=== PATIENT | female | born 1975 | race Caucasian/White ===

== ENCOUNTER → 2017-11-02 | Outpatient (CLI) | payer OTHER, BC ==
[~2017-11-02] MED LIST: ALBU90OI INH; FLUO10 PO; Flonase 0.05% N16 GM; PRED20 PO; Protonix40 MG PO
[2017-11-02 08:30] LABS: BASOPHILS PERCENT AUTO 1 % (0-2); EOSINOPHILS PERCENT AUTO 3 % (0-6); Hematocrit 41.9 % (33.0-51.0); Hemoglobin 13.5 g/dL (11.5-16.0); IMMATURE GRAN ABSOLUTE AUTO 0.09 K/mm3 (0.00-0.10); IMMATURE GRAN PERCENT AUTO 1 % (0-1); LYMPHOCYTES ABSOLUTE AUTO 2.99 K/mm3 (0.84-5.20); LYMPHOCYTES PERCENT AUTO 20 % (21-46); MONOCYTES ABSOLUTE AUTO 0.55 K/mm3 (0.16-1.47); MONOCYTES PERCENT AUTO 4 % (4-13); Mean Corpuscular HGB 26.8 pg (26.0-34.0); Mean Corpuscular HGB Conc 32.2 g/dL (31.5-36.5); Mean Corpuscular Volume 83 fL (80-100); Mean Platelet Volume 9.1 fL (9.1-12.4); NEUTROPHILS ABSOLUTE AUTO 10.86 K/mm3 (1.96-9.15); NEUTROPHILS PERCENT AUTO 72 % (41-73); Platelet Count 480 K/mm3 (150-400); RDW Coefficient Variation 14.1 % (11.7-14.2); RDW Standard Deviation 42.3 fL (35.1-46.3); Red Blood Cell Count 5.03 M/mm3 (3.80-5.20); White Blood Cell Count 14.99 K/mm3 (4.00-11.30)
[2017-11-02 08:42] LABS: Anion Gap 7 mmol/L (6-16); Blood Urea Nitrogen 8 mg/dL (8-24); Bun/Creatinine Ratio 13.3 (12.0-20.0); CO2, Blood 29 mmol/L (21-32); Calcium, Blood 9.5 mg/dL (8.5-10.1); Chloride, Blood 102 mmol/L (98-108); Glomerular Filtration Rate >60 (60-); Glucose, Blood 86 mg/dL (70-99); Potassium, Blood 4.2 mmol/L (3.5-5.5); Sodium, Blood 138 mmol/L (136-145)
== END | disposition home or self-care (01) ==
LOC: LAB EV 08:24 → LAB SHORT 08:24
PROVIDERS: Physician Assistant Surgical
DX: M62.81 Muscle weakness (generalized) (principal)
CPT/HCPCS: 80048; 85025

== ENCOUNTER → 2017-11-07 | Outpatient (CLI) | payer OTHER, BC ==
[2017-11-08 09:53] LABS: Candida species (DNA Probe) Negative (NEGATIVE); G. vaginalis (DNA Probe) Positive (NEGATIVE); T. vaginalis (DNA Probe) Negative (NEGATIVE)
[2017-11-09 11:16] LABS: HPV Genotype 16 Not Detected (NOTDET); HPV Genotype 18 Not Detected (NOTDET); HPV High Risk Other Not Detected (NOTDET)
== END ==
LOC: LAB SHORT 16:25 → LAB 16:25
PROVIDERS: Obstetrics & Gynecology
DX: Z01.419 Encounter for gynecological examination (general) (routine) without abnormal findings (principal); N76.0 Acute vaginitis
CPT/HCPCS: 87480; 87510; 87660

== ENCOUNTER 2017-11-10 10:20 | Emergency (ER) | payer OTHER, BC | END 2017-11-10 11:00 | disposition left against medical advice (07) | LOC: ER 10:20 | DX: Z53.21 Procedure and treatment not carried out due to patient leaving prior to being seen by health care provider (principal) ==

== ENCOUNTER 2018-07-25 19:22 | Emergency (ER) | payer OTHER ==
[~2018-07-25] VITALS: Ht 157.5 cm; Wt 97.5 kg
[~2018-07-25 19:22] MED LIST changes: +Ativan1 MG PO; +MECL12.5 PO
[2018-07-25] MEDS ORDERED: PROBIOTIC1 EAC1 PO (20:19)
[2018-07-25 20:21] LABS: BASOPHILS ABSOLUTE AUTO 0.11 K/mm3 (0.00-0.23); BASOPHILS PERCENT AUTO 1 % (0-2); EOSINOPHILS ABSOLUTE AUTO 0.42 K/mm3 (0.00-0.68); EOSINOPHILS PERCENT AUTO 3 % (0-6); Hematocrit 40.1 % (33.0-51.0); Hemoglobin 12.4 g/dL (11.5-16.0); IMMATURE GRAN ABSOLUTE AUTO 0.11 K/mm3 (0.00-0.10); IMMATURE GRAN PERCENT AUTO 1 % (0-1); LYMPHOCYTES ABSOLUTE AUTO 3.84 K/mm3 (0.84-5.20); LYMPHOCYTES PERCENT AUTO 23 % (21-46); MONOCYTES ABSOLUTE AUTO 0.68 K/mm3 (0.16-1.47); MONOCYTES PERCENT AUTO 4 % (4-13); Mean Corpuscular HGB 25.2 pg (26.0-34.0); Mean Corpuscular HGB Conc 30.9 g/dL (31.5-36.5); Mean Corpuscular Volume 82 fL (80-100); Mean Platelet Volume 9.2 fL (9.1-12.4); NEUTROPHILS ABSOLUTE AUTO 11.59 K/mm3 (1.96-9.15); NEUTROPHILS PERCENT AUTO 69 % (41-73); Platelet Count 505 K/mm3 (150-400); RDW Coefficient Variation 15.7 % (11.7-14.2); RDW Standard Deviation 45.8 fL (35.1-46.3); Red Blood Cell Count 4.92 M/mm3 (3.80-5.20); White Blood Cell Count 16.75 K/mm3 (4.00-11.30)
[2018-07-25 20:49] LABS: Alanine Aminotransfer (ALT/SGP 28 U/L (12-78); Albumin, Blood 3.5 g/dL (3.4-5.0); Albumin/Globulin Ratio 0.8 (0.8-1.8); Alk Phos 80 U/L (50-136); Anion Gap 8 mmol/L (6-16); Aspartate Aminotrans (AST/SGOT 14 U/L (12-37); Bilirubin, Total 0.3 mg/dL (0.1-1.0); Blood Urea Nitrogen 8 mg/dL (8-24); Bun/Creatinine Ratio 15.6 (12.0-20.0); CO2, Blood 27 mmol/L (21-32); Calcium, Blood 8.8 mg/dL (8.5-10.1); Chloride, Blood 104 mmol/L (98-108); Creatinine, Blood 0.51 mg/dL (0.40-1.00); Globulin, Blood 4.3 g/dL (2.2-4.0); Glomerular Filtration Rate >60 (60-); Glucose, Blood 111 mg/dL (70-99); Sodium, Blood 139 mmol/L (136-145); Total Protein, Blood 7.8 g/dL (6.4-8.2); Troponin I <0.015 ng/mL (0.000-0.040)
[2018-07-25] MEDS ORDERED: Zithromax250 MG PO (23:01)
[2018-07-25] MEDS ORDERED: Pepcid40 MG PO (23:01)
[2018-07-25] MEDS ORDERED: FLUC150A PO (23:18)
== END 2018-07-25 23:23 | disposition home or self-care (01) ==
LOC: ER 19:22
PROVIDERS: Emergency Medicine
DX: R07.2 Precordial pain (principal); J45.909 Unspecified asthma, uncomplicated; F41.9 Anxiety disorder, unspecified; F17.210 Nicotine dependence, cigarettes, uncomplicated; K21.9 Gastro-esophageal reflux disease without esophagitis; Z60.9 Problem related to social environment, unspecified; Z88.2 Allergy status to sulfonamides
CPT/HCPCS: 36415; 71046; 80053; 84484; 85025; 93005; 93010; 99285-25

== ENCOUNTER → 2019-03-29 | Outpatient (CLI) | payer OTHER ==
[~2019-03-29] MED LIST changes: +Amoxicillin875 MG PO; +ESCITALOPRAM OX10 MG PO; +FLUC150A PO; +IBUP800 PO; +Norco 5-325 Ta1 EACH PO; +PROBIOTIC1 EAC1 PO; +Pepcid40 MG PO; +Zithromax250 MG PO
[2019-04-01 15:07] LABS: HPV 16 Negative (Negative); HPV 18 Negative (Negative); HPV OTHER HR TYPES Positive (Negative)
== END | disposition home or self-care (01) ==
LOC: PLD 13:59 → LAB SHORT 13:59
PROVIDERS: Obstetrics & Gynecology
DX: Z01.419 Encounter for gynecological examination (general) (routine) without abnormal findings (principal); N92.0 Excessive and frequent menstruation with regular cycle
CPT/HCPCS: 87624; 87625; 88305; G0123

== ENCOUNTER 2019-04-14 23:05 | Emergency (ER) | payer OTHER ==
[~2019-04-14] VITALS: Ht 157.5 cm; Wt 100.7 kg
[~2019-04-14 23:05] MED LIST changes: -Amoxicillin875 MG PO; -ESCITALOPRAM OX10 MG PO; -IBUP800 PO; -Norco 5-325 Ta1 EACH PO
[2019-04-14] MEDS ORDERED: IBUP800 PO (23:16)
[2019-04-14] MEDS ORDERED: ESCITALOPRAM OX10 MG PO (23:16)
[2019-04-14] MEDS ORDERED: Amoxicillin875 MG PO (23:59)
[2019-04-14] MEDS ORDERED: Norco 5-325 Ta1 EACH PO (23:59)
[2019-04-14] MEDS ORDERED: FLUC150A PO (23:59)
== END 2019-04-15 00:38 | disposition home or self-care (01) ==
LOC: ER 23:05
DX: R51 Headache (principal); R68.84 Jaw pain; Z88.2 Allergy status to sulfonamides; Z88.8 Allergy status to other drugs, medicaments and biological substances; Z88.1 Allergy status to other antibiotic agents; Z79.899 Other long term (current) drug therapy; J45.909 Unspecified asthma, uncomplicated; F32.9 Major depressive disorder, single episode, unspecified; F17.210 Nicotine dependence, cigarettes, uncomplicated
CPT/HCPCS: 99283; A9270-GY

== ENCOUNTER 2019-06-24 05:40 | Day surgery (SDC) | payer OTHER, SELFPAY ==
[~2019-06-24] VITALS: Ht 157.5 cm; Wt 98.8 kg
[~2019-06-24 05:40] MED LIST changes: +Amoxicillin875 MG PO; +ESCI10 PO; +ESCITALOPRAM OX10 MG PO; +IBUP800 PO; +Norco 5-325 Ta1 EACH PO
--- NOTE | 2019-06-24 06:34 | NUR ---
Ambulatory in Day Surgery History, Chart, Medications and Allergies reviewed before start of procedure.Lungs clear T/O to Auscultation. Patient confirms NPO status and agrees with scheduled surgery. Patient reports completing Chlorhexadine shower X2 prior to admission to hospital.Surgical site prepped with 2% Chlorhexidine cloth wipe.
--- NOTE | 2019-06-24 17:44 | NUR ---
SHIFT SUMMARY PT IS S/P LAVH TODAY WITH DR MERINO. PT HAS BEEN AMBULATING IN HALLWAYS IND. TOLERATING PO FOOD AND FLUIDS WELL. NO NAUSEA. PT HAS HAD SOME PAIN, MANAGED WTIH PO PAIN MEDS PER ORDERS. FAMILY HAS BEEN IN WITH PT TODAY. STERI STRIPS HAVE SM AMT DRAINAGE. AARON PAD HAS HAD A VERY SCANT AMT OF BLOOD.
[2019-06-25 04:26] LABS: BASOPHILS ABSOLUTE AUTO 0.04 K/mm3 (0.00-0.23); BASOPHILS PERCENT AUTO 0 % (0-2); EOSINOPHILS ABSOLUTE AUTO 0.03 K/mm3 (0.00-0.68); EOSINOPHILS PERCENT AUTO 0 % (0-6); Hematocrit 34.8 % (33.0-51.0); Hemoglobin 10.3 g/dL (11.5-16.0); IMMATURE GRAN ABSOLUTE AUTO 0.11 K/mm3 (0.00-0.10); IMMATURE GRAN PERCENT AUTO 1 % (0-1); LYMPHOCYTES ABSOLUTE AUTO 3.46 K/mm3 (0.84-5.20); LYMPHOCYTES PERCENT AUTO 16 % (21-46); MONOCYTES ABSOLUTE AUTO 0.89 K/mm3 (0.16-1.47); MONOCYTES PERCENT AUTO 4 % (4-13); Mean Corpuscular HGB 23.4 pg (26.0-34.0); Mean Corpuscular HGB Conc 29.6 g/dL (31.5-36.5); Mean Corpuscular Volume 79 fL (80-100); NEUTROPHILS ABSOLUTE AUTO 17.58 K/mm3 (1.96-9.15); NEUTROPHILS PERCENT AUTO 80 % (41-73); Platelet Count 522 K/mm3 (150-400); RDW Coefficient Variation 16.4 % (11.7-14.2); RDW Standard Deviation 46.8 fL (35.1-46.3); White Blood Cell Count 22.11 K/mm3 (4.00-11.30)
--- NOTE | 2019-06-25 05:37 | NUR ---
SHIFT SUMMARY: CARRIE IS A&OX4. SHE IS POD 1 FOR LAVH. SHE HAS HAD SCANT DRAINAGE ON HER AARON PAD. STERI STRIPS X 3 ON ABDOMEN WITH SCANT RED DRAINAGE. JOHN REMOVED THIS AM. SHE IS TOLERATING PO INTAKE WELL. IV PATENT, SALINE LOCKED. SHE AMBULATES INDEPENDENTLY. VSS. SHE RESTED INTERMITTENTLY DURING THE SHIFT. SHE REPORTS HER PAIN IS WELL CONTROLLED WITH THE TORADOL AND ROXICODONE. SHE IS LYING COMFORTABLY IN BED WITH HER CALL LIGHT IN REACH.
--- NOTE | 2019-06-25 08:15 | NUR ---
BLADDER SCAN "0" AFTER PT VOIDED
[2019-06-25] MEDS ORDERED: DOCU100 PO (08:25)
[2019-06-25] MEDS ORDERED: IBUP800 PO (08:26)
[2019-06-25] MEDS ORDERED: Percocet 5-3251 EACH PO (08:26)
--- NOTE | 2019-06-25 09:59 | NUR ---
DISCHARGE SUMMARY PT IS A&OX4, VSS, AMBULATING, VOIDING; WALKED OFF FLOOR WITH SIGNIFICANT OTHER, DECLINED WHEELCHAIR, WITH ALL PERSONAL POSSESSIONS INCLUDING DC PACKET AND 1 NARC SCRIPT AND 1 MOTRIN SCRIPT. DC INSTRUCTIONS PROVIDED. PT AND S.O. REPORTED UNDERSTANDING THOSE INSTRUCTIONS INCLUDING OK TO SHOWER, NO TUB/JACUZZI, PELVIC REST, FU APPT 2WKS AND 6 WKS, NO DRIVING WHILE TAKING NARCOTICS, SPLINTING ABD, LEAVE STERI STRIPS IN PLACE - COME OFF ON THEIR OWN 7-[address] WILL REMOVE. IV DC'D. BLADDER SCAN HAD ZERO RESULTING URINE PRESENT AFTER VOID.
== END 2019-06-25 09:13 | disposition home or self-care (01) ==
LOC: ORSCMMR 05:40 → ORD 07:30 → ORSCMMR 07:30 → SURS 10:52 → ORSCMMR 06-25 09:13 → SURS 06-25 09:13
PROVIDERS: Obstetrics & Gynecology
PROC: 0UT7FZZ Resection of Bilateral Fallopian Tubes, Via Natural or Artificial Opening With Percutaneous Endoscopic Assistance (ICD-10-PCS; principal; 2019-06-24 07:30)
PROC: 0UT9FZZ Resection of Uterus, Via Natural or Artificial Opening With Percutaneous Endoscopic Assistance (ICD-10-PCS; principal; 2019-06-24 07:30)
DX: N92.0 Excessive and frequent menstruation with regular cycle (principal); N94.6 Dysmenorrhea, unspecified; D25.9 Leiomyoma of uterus, unspecified; N80.0 Endometriosis of uterus; E78.5 Hyperlipidemia, unspecified; K21.9 Gastro-esophageal reflux disease without esophagitis; F41.8 Other specified anxiety disorders; F43.10 Post-traumatic stress disorder, unspecified; J45.909 Unspecified asthma, uncomplicated; E66.01 Morbid (severe) obesity due to excess calories; Z68.39 Body mass index [BMI] 39.0-39.9, adult
CPT/HCPCS: 36415; 85025; 88307; A9270; J0690; J1100; J1885; J2250; J2405; J2704; J3010; J7120

== ENCOUNTER 2019-08-28 10:28 | Emergency (ER) | payer OTHER, SELFPAY ==
[~2019-08-28] VITALS: Ht 157.5 cm; Wt 98.0 kg
[~2019-08-28 10:28] MED LIST changes: +DOCU100 PO; +Percocet 5-3251 EACH PO
[2019-08-28] MEDS ORDERED: ESCI10 PO (10:40)
[2019-08-28] MEDS ORDERED: MELA3 PO (10:40)
[2019-08-28 11:07] LABS: BASOPHILS ABSOLUTE AUTO 0.09 K/mm3 (0.00-0.23); BASOPHILS PERCENT AUTO 1 % (0-2); EOSINOPHILS ABSOLUTE AUTO 0.48 K/mm3 (0.00-0.68); EOSINOPHILS PERCENT AUTO 3 % (0-6); Hematocrit 37.8 % (33.0-51.0); Hemoglobin 11.3 g/dL (11.5-16.0); IMMATURE GRAN ABSOLUTE AUTO 0.08 K/mm3 (0.00-0.10); IMMATURE GRAN PERCENT AUTO 1 % (0-1); LYMPHOCYTES ABSOLUTE AUTO 3.42 K/mm3 (0.84-5.20); LYMPHOCYTES PERCENT AUTO 23 % (21-46); MONOCYTES ABSOLUTE AUTO 0.46 K/mm3 (0.16-1.47); MONOCYTES PERCENT AUTO 3 % (4-13); Mean Corpuscular HGB 23.1 pg (26.0-34.0); Mean Corpuscular HGB Conc 29.9 g/dL (31.5-36.5); Mean Corpuscular Volume 77 fL (80-100); NEUTROPHILS ABSOLUTE AUTO 10.47 K/mm3 (1.96-9.15); NEUTROPHILS PERCENT AUTO 70 % (41-73); Platelet Count 518 K/mm3 (150-400); RDW Coefficient Variation 16.2 % (11.7-14.2); RDW Standard Deviation 45.6 fL (35.1-46.3); Red Blood Cell Count 4.89 M/mm3 (3.80-5.20)
[2019-08-28 11:34] LABS: Alanine Aminotransfer (ALT/SGP 40 U/L (12-78); Albumin, Blood 3.4 g/dL (3.4-5.0); Albumin/Globulin Ratio 0.9 (0.8-1.8); Alk Phos 71 U/L (50-136); Anion Gap 7 mmol/L (6-16); Aspartate Aminotrans (AST/SGOT 22 U/L (12-37); Bilirubin, Total 0.4 mg/dL (0.1-1.0); Blood Urea Nitrogen 6 mg/dL (8-24); Bun/Creatinine Ratio 11.4 (12.0-20.0); CO2, Blood 27 mmol/L (21-32); Calcium, Blood 8.9 mg/dL (8.5-10.1); Chloride, Blood 106 mmol/L (98-108); Creatinine, Blood 0.53 mg/dL (0.40-1.00); Globulin, Blood 3.9 g/dL (2.2-4.0); Glomerular Filtration Rate >60 (60-); Glucose, Blood 142 mg/dL (70-99); Potassium, Blood 3.6 mmol/L (3.5-5.5); Sodium, Blood 140 mmol/L (136-145); Total Protein, Blood 7.3 g/dL (6.4-8.2); Troponin I <0.015 ng/mL (0.000-0.040)
[2019-08-28 13:17] LABS: Troponin I <0.015 ng/mL (0.000-0.040)
[2019-08-28 13:43] LABS: Free Thyroxine 0.75 ng/dL (0.70-1.60)
[2019-08-28 13:45] LABS: Thyroid Stimulating Hormone 1.42 uIU/mL (0.360-4.800)
[2019-08-28] MEDS ORDERED: ESOM20 PO (13:56)
[2019-08-28] MEDS ORDERED: Sucralfate1 GM PO (13:56)
== END 2019-08-28 14:19 | disposition home or self-care (01) ==
LOC: ER 10:28
PROVIDERS: Emergency Medicine; Physician Assistant
DX: R07.2 Precordial pain (principal); Z88.2 Allergy status to sulfonamides; Z88.8 Allergy status to other drugs, medicaments and biological substances; Z88.1 Allergy status to other antibiotic agents; Z79.899 Other long term (current) drug therapy; F41.9 Anxiety disorder, unspecified; J45.909 Unspecified asthma, uncomplicated; F17.210 Nicotine dependence, cigarettes, uncomplicated
CPT/HCPCS: 36415; 71046; 80053; 83690; 84439; 84443; 84484; 85025; 93005; 93010; 96374; 99285-25